=== PATIENT | male | born 1960 | race Caucasian/White ===

== ENCOUNTER 2019-03-07 11:03 | Day surgery (SDC) | payer BC ==
[2019-03-06 09:14] VITALS: BMI 29.8
[~2019-03-07 11:03] MED LIST: LACTATED RINGERS 1,000 ML IV SCH
[2019-03-07 12:24] VITALS: TEMP 97.3
[2019-03-07] MEDS ORDERED: LIDOCAINE 1% (10MG/ML) FOR IV START INTRADERMA ONE (12:24)
[2019-03-07] MEDS ORDERED: PROPOFOL 10 MG/ML 20 ML VIAL IV ONE (12:55)
--- NOTE | 2019-03-07 13:09 | P.PCN ---
Date of Procedure: 03/07/19 Procedure(s) Performed: BRIEF HISTORY: Patient is a 58-year-old pleasant male scheduled for an elective colonoscopy as a part of screening for colorectal neoplasia. PROCEDURE PERFORMED: Colonoscopy. PREOPERATIVE DIAGNOSIS: Screening for colon cancer. IV sedation per Anesthesia. PROCEDURE: After informed consent was obtained, the patient, was brought into the endoscopy unit. IV sedation was administered by Anesthesia under continuous monitoring. Digital rectal examination was normal. Initially the Olympus CF-160 flexible video colonoscope was then inserted in the rectum, gradually advanced into the cecum without any difficulty. Careful examination was performed as the scope was gradually being withdrawn. Ileocecal valve and the appendiceal orifice were visualized and appeared normal. Prep was excellent. Mucosa of the cecum, ascending colon, transverse colon, descending colon, sigmoid colon, and rectum appeared normal. Retroflexion was performed in the rectum and no lesions were seen. The patient tolerated the procedure well. IMPRESSION: Normal-appearing colon from rectum to cecum with no evidence of colorectal neoplasia . RECOMMENDATIONS: Findings of this examination were discussed with the patient as well as his family. He was advised to have a repeat screening colonoscopy in 10 years..
[2019-03-07 13:55] VITALS: BP 121/76; PULSE 78; RESP 16
== END 2019-03-07 13:47 | disposition home or self-care (01) ==
LOC: ORWHC2ENDO 11:03
PROVIDERS: ATTEND Internal Medicine Gastroenterology
DX: Z12.11 Encounter for screening for malignant neoplasm of colon (principal); I10 Essential (primary) hypertension; Z87.891 Personal history of nicotine dependence; Z79.1 Long term (current) use of non-steroidal anti-inflammatories (NSAID)
CPT/HCPCS: J2704; G0121; 45378

== ENCOUNTER 2020-08-09 09:00 | Emergency (ER) | payer BC ==
--- NOTE | 2020-08-09 09:27 | ED ---
General Adult HPI - General Chief complaint: Arrhythmia/Palpitations Stated complaint: irregular heart rate Time Seen by Provider: 08/09/20 09:12 Source: patient, RN notes reviewed, old records reviewed Mode of arrival: ambulatory Limitations: no limitations - History of Present Illness Initial comments: 60-year-old male presenting with palpitations or fluttering sensation in his chest. No associated pain. No dyspnea. Patient is otherwise healthy, no previous history of arrhythmia or CAD currently not on any prescribed medications. Symptoms resolved just prior to arrival. It had lasted greater than an hour. He's had several episodes of this in the past which have resolved spontaneously. No associated syncopal episodes or lightheadedness. No vomiting. No abdominal pain. No fever. - Related Data Home Medications Medication Instructions Recorded Confirmed Glucosam/Ruben-Msm1/C/Jed/Bosw 2 tab PO DAILY 08/09/20 08/09/20 [Sgxpyqyefiw-Kzhvzxbcmsp-CPT Tb] Naproxen Sodium [Aleve] 220 mg PO DAILY PRN 08/09/20 08/09/20 Allergies Allergy/AdvReac Type Severity Reaction Status Date / Time No Known Allergies Allergy Verified 08/09/20 09:46 Review of Systems ROS Statement: Those systems with pertinent positive or pertinent negative responses have been documented in the HPI. ROS Other: All systems not noted in ROS Statement are negative. Past Medical History Past Medical History: Cancer, Hypertension, Osteoarthritis (OA) Additional Past Medical History / Comment(s): occ high bp-no rx, hx skin cancer History of Any Multi-Drug Resistant Organisms: None Reported Past Surgical History: Hernia Repair Additional Past Surgical History / Comment(s): skin cancer removed from face Past Anesthesia/Blood Transfusion Reactions: No Reported Reaction Past Psychological History: No Psychological Hx Reported Smoking Status: Never smoker Past Alcohol Use History: Occasional Past Drug Use History: None Reported - Past Family History Father Family Medical History: Cancer General Exam Limitations: no limitations General appearance: alert, in no apparent distress Head exam: Present: atraumatic, normocephalic Eye exam: Present: normal appearance, PERRL ENT exam: Present: normal exam Neck exam: Present: normal inspection. Absent: tenderness, meningismus Respiratory exam: Present: normal lung sounds bilaterally. Absent: respiratory distress, wheezes Cardiovascular Exam: Present: regular rate, normal rhythm GI/Abdominal exam: Present: soft. Absent: distended, tenderness Extremities exam: Present: normal inspection, normal capillary refill. Absent: pedal edema Neurological exam: Present: alert, oriented X3, CN II-XII intact. Absent: motor sensory deficit Psychiatric exam: Present: normal affect, normal mood Skin exam: Present: warm, dry, intact. Absent: cyanosis, diaphoretic Course Vital Signs 08/09/20 08/09/20 09:02 09:37 Temperature 98.2 F Pulse Rate 103 H 90 Respiratory 18 16 Rate Blood Pressure 160/120 154/98 O2 Sat by Pulse 99 97 Oximetry EKG Findings - EKG Comments: EKG Findings:: EKG: Normal sinus rhythm, left axis, possible left atrial enlargement, rate of 94, [place] interval 162, QRS duration 94, QTC 440, no ST segment elevation. Medical Decision Making - Medical Decision Making 40-year-old male with palpitations. Found to be in sinus rhythm. History is concerning for some intermittent arrhythmia but this is not captured. I do recommend the patient follows with his primary care physician for Holter monitor. Additionally laboratory testing was performed which did show an elevated blood glucose with no history of diabetes. Patient will follow with his primary care physician regarding this as well. All other labs including electrolytes and troponin are negative, chest x-ray is clear, EKG is sinus rhythm. - Lab Data Result diagrams: 08/09/20 09:27 08/09/20 09:27 Lab Results 08/09/20 08/09/20 08/09/20 Range/Units 09:27 09:27 09:27 WBC 4.2 (3.8-10.6) k/uL RBC 5.62 (4.30-5.90) m/uL Hgb 17.4 (13.0-17.5) gm/dL Hct 51.4 (39.0-53.0) % MCV 91.4 (80.0-100.0) fL MCH 31.0 (25.0-35.0) pg MCHC 33.9 (31.0-37.0) g/dL RDW 12.9 (11.5-15.5) % Plt Count 173 (150-450) k/uL MPV 8.2 Neutrophils % 65 % Lymphocytes % 21 % Monocytes % 9 % Eosinophils % 2 % Basophils % 1 % Neutrophils # 2.7 (1.3-7.7) k/uL Lymphocytes # 0.9 L (1.0-4.8) k/uL Monocytes # 0.4 (0-1.0) k/uL Eosinophils # 0.1 (0-0.7) k/uL Basophils # 0.0 (0-0.2) k/uL PT 10.7 (9.0-12.0) sec INR 1.0 (<1.2) APTT 25.8 (22.0-30.0) sec Sodium 138 (137-145) mmol/L Potassium 3.9 (3.5-5.1) mmol/L Chloride 105 (98-107) mmol/L Carbon Dioxide 25 (22-30) mmol/L Anion Gap 8 mmol/L BUN 11 (9-20) mg/dL Creatinine 0.97 (0.66-1.25) mg/dL Est GFR (CKD-EPI)AfAm >90 (>60 ml/min/1.73 sqM) Est GFR (CKD-EPI)NonAf 85 (>60 ml/min/1.73 sqM) Glucose 208 H (74-99) mg/dL Calcium 9.3 (8.4-10.2) mg/dL Magnesium 1.9 (1.6-2.3) mg/dL Total Bilirubin 0.8 (0.2-1.3) mg/dL AST 25 (17-59) U/L ALT 17 (4-49) U/L Alkaline Phosphatase 90 (38-126) U/L Troponin I (0.000-0.034) ng/mL Total Protein 6.8 (6.3-8.2) g/dL Albumin 4.3 (3.5-5.0) g/dL 08/09/20 Range/Units 09:27 WBC (3.8-10.6) k/uL RBC (4.30-5.90) m/uL Hgb (13.0-17.5) gm/dL Hct (39.0-53.0) % MCV (80.0-100.0) fL MCH (25.0-35.0) pg MCHC (31.0-37.0) g/dL RDW (11.5-15.5) % Plt Count (150-450) k/uL MPV Neutrophils % % Lymphocytes % % Monocytes % % Eosinophils % % Basophils % % Neutrophils # (1.3-7.7) k/uL Lymphocytes # (1.0-4.8) k/uL Monocytes # (0-1.0) k/uL Eosinophils # (0-0.7) k/uL Basophils # (0-0.2) k/uL PT (9.0-12.0) sec INR (<1.2) APTT (22.0-30.0) sec Sodium (137-145) mmol/L Potassium (3.5-5.1) mmol/L Chloride (98-107) mmol/L Carbon Dioxide (22-30) mmol/L Anion Gap mmol/L BUN (9-20) mg/dL Creatinine (0.66-1.25) mg/dL Est GFR (CKD-EPI)AfAm (>60 ml/min/1.73 sqM) Est GFR (CKD-EPI)NonAf (>60 ml/min/1.73 sqM) Glucose (74-99) mg/dL Calcium (8.4-10.2) mg/dL Magnesium (1.6-2.3) mg/dL Total Bilirubin (0.2-1.3) mg/dL AST (17-59) U/L ALT (4-49) U/L Alkaline Phosphatase (38-126) U/L Troponin I <0.012 (0.000-0.034) ng/mL Total Protein (6.3-8.2) g/dL Albumin (3.5-5.0) g/dL Disposition Clinical Impression: Palpitations, Blood glucose elevated Disposition: HOME SELF-CARE Condition: Good Instructions (If sedation given, give patient instructions): Heart Palpitations (ED) Additional Instructions: Your blood sugar was elevated over 200, he should follow-up with your primary care physician regarding the possibility of diabetes please return with worsening or changing symptoms. Is patient prescribed a controlled substance at d/c from ED?: No Referrals: Calixto Wilson MD [Primary Care Provider] - 1-2 days Time of Disposition: 10:27
[2020-08-09 09:35] LABS: Basophils % (A) 1 %; Eosinophils # (A) 0.1 k/uL (0-0.7); Eosinophils % (A) 2 %; HCT 51.4 % (39.0-53.0); HGB 17.4 gm/dL (13.0-17.5); Lymphocytes # (A) 0.9 k/uL (1.0-4.8); Lymphocytes % (A) 21 %; MCHC 33.9 g/dL (31.0-37.0); MCV 91.4 fL (80.0-100.0); Mean Platelet Volume 8.2; Monocytes # (A) 0.4 k/uL (0-1.0); Monocytes % (A) 9 %; Neutrophils # (A) 2.7 k/uL (1.3-7.7); Neutrophils % (A) 65 %; Platelet Count 173 k/uL (150-450); RBC 5.62 m/uL (4.30-5.90); RDW 12.9 % (11.5-15.5); WBC 4.2 k/uL (3.8-10.6)
[2020-08-09 09:38] VITALS: RESP 16
[2020-08-09 09:44] LABS: ALT 17 U/L (4-49); AST 25 U/L (17-59); African American GFR (CKD) >90 (>60 ml/min/1.73 sqM); Albumin 4.3 g/dL (3.5-5.0); Alkaline Phosphatase 90 U/L (38-126); Anion Gap 8 mmol/L; Blood Urea Nitrogen 11 mg/dL (9-20); Calcium 9.3 mg/dL (8.4-10.2); Carbon Dioxide 25 mmol/L (22-30); Chloride 105 mmol/L (98-107); Glucose 208 mg/dL (74-99); Magnesium 1.9 mg/dL (1.6-2.3); Non-African American GFR(CKD) 85 (>60 ml/min/1.73 sqM); Potassium 3.9 mmol/L (3.5-5.1); Sodium 138 mmol/L (137-145); Total Bilirubin 0.8 mg/dL (0.2-1.3); Total Protein 6.8 g/dL (6.3-8.2)
--- NOTE | 2020-08-09 09:48 | XR ---
EXAMINATION TYPE: XR chest 2V DATE OF EXAM: 08/09/2020 COMPARISON: NONE HISTORY: Palpitations. TECHNIQUE: Frontal and lateral views of the chest are obtained. FINDINGS: Overlying EKG leads. There is no suspicious focal air space opacity, pleural effusion, or pneumothorax seen. The cardiac silhouette size is within normal limits. The osseous structures are intact. IMPRESSION: No acute cardiopulmonary process.
[2020-08-09 10:02] LABS: Partial Thromboplastin Time 25.8 sec (22.0-30.0); Prothrombin Time 10.7 sec (9.0-12.0)
[2020-08-09 10:38] VITALS: BP 148/79; PULSE 78; TEMP 97.9
== END 2020-08-09 10:35 | disposition home or self-care (01) ==
LOC: EC 09:00
DX: R00.2 Palpitations (principal); R73.9 Hyperglycemia, unspecified; I10 Essential (primary) hypertension; M19.90 Unspecified osteoarthritis, unspecified site
CPT/HCPCS: 36415; 71046; 80053; 83735; 84484; 85025; 85610; 85730; 93005; 99285

== ENCOUNTER 2023-04-06 01:08 | Observation (INO) | payer BC ==
--- NOTE | 2023-04-06 01:49 | ED ---
General Adult HPI - General Chief complaint: Arrhythmia/Palpitations Stated complaint: illregular heart beat Time Seen by Provider: 04/06/23 01:19 Source: patient, RN notes reviewed, old records reviewed Mode of arrival: ambulatory Limitations: no limitations - History of Present Illness Initial comments: Patient is a 62-year-old male who presents emergency department complaining of palpitations. States he has had these intermittently for the last few years however they have never been able to catch what is causing it. States that he began experiencing palpitations at approximately midnight tonight and it has been ongoing since then. Typically does not last this long. There is suspicion he may have a history of paroxysmal A-fib. Is concerned that is what is going on. Denies any margaret chest pain, shortness of breath, abdominal pain, nausea, vomiting. No recent long distance travel. Presents for further evaluation. - Related Data Home Medications Medication Instructions Recorded Confirmed Glucosam/Ruben-Msm1/C/Jed/Bosw 2 tab PO DAILY 08/09/20 08/09/20 [Qzsanryxjnd-Rfwsdinrzvk-SWN Tb] Naproxen Sodium [Aleve] 220 mg PO DAILY PRN 08/09/20 08/09/20 Allergies Allergy/AdvReac Type Severity Reaction Status Date / Time No Known Allergies Allergy Verified 04/06/23 01:11 Review of Systems ROS Statement: Those systems with pertinent positive or pertinent negative responses have been documented in the HPI. Review of Systems: CONST: Denies fever EYES: Denies blurry vision ENT: Denies nasal congestion C/V: Endorses heart palpitations RESP: Denies shortness of breath GI: Denies abdominal pain : Denies dysuria SKIN: Denies rash. MSK: Denies joint pain. NEURO: Denies headache ROS Other: All systems not noted in ROS Statement are negative. Past Medical History Past Medical History: Cancer, Hypertension, Osteoarthritis (OA), Rheumatoid Arthritis (RA) Additional Past Medical History / Comment(s): occ high bp-no rx, hx skin cancer History of Any Multi-Drug Resistant Organisms: None Reported Past Surgical History: Hernia Repair Additional Past Surgical History / Comment(s): skin cancer removed from face Past Anesthesia/Blood Transfusion Reactions: No Reported Reaction Past Psychological History: No Psychological Hx Reported Smoking Status: Never smoker Past Alcohol Use History: Occasional Past Drug Use History: None Reported - Past Family History Father Family Medical History: Cancer General Exam - General Exam Comments Initial Comments: General: Appears in no acute distress. HEAD: Normal with no signs of head trauma. EYES: PERRLA, EOMI, conjunctiva normal, no discharge. ENT: Hearing grossly intact, normal oropharynx. RESPIRATORY: Clear breath sounds bilaterally. No wheezes, rales, or rhonchi. C/V: Irregular rate and rhythm. S1 and S2 auscultated, no edema, peripheral pulses 2+ and intact throughout ABD: Abd is soft, nontender, nondistended EXT: Normal range of motion, no obvious deformity SKIN: No rashes or lesions observed on exposed skin. NEURO: Alert and oriented x 4. Limitations: no limitations Course Vital Signs 04/06/23 04/06/23 04/06/23 01:09 01:32 02:57 Temperature 98.2 F 98.2 F Pulse Rate 132 H 126 H 85 Respiratory 20 18 18 Rate Blood Pressure 161/96 171/113 120/105 O2 Sat by Pulse 98 100 98 Oximetry Medical Decision Making - Medical Decision Making Was pt. sent in by a medical professional or institution (, PA, [employer] WORKER HELPER, urgent care, hospital, or long term...) When possible be specific @ -No Did you speak to anyone other than the patient for history (EMS, parent, family, police, friend...)? What history was obtained from this source @ -No Did you review nursing and triage notes (agree or disagree)? Why? @ -I reviewed and agree with nursing and triage notes Were old charts reviewed (outside hosp., previous admission, EMS record, old EKG, old radiological studies, urgent care reports/EKG's, long term records)? Report findings @ -No old charts were reviewed Differential Diagnosis (chest pain, altered mental status, abdominal pain women, abdominal pain men, vaginal bleeding, weakness, fever, dyspnea, syncope, headache, dizziness, GI bleed, back pain, seizure, CVA, palpatations, mental health, musculoskeletal)? @ -Differential Palpitations Ventricular arrhythmias, atrial arrhythmias, myocardial infarction, anemia, thyrotoxicosis, electrolyte imbalance, hypokalemia, pulmonary embolism, pulmonary disease, drugs, alcohol, anxiety, stress.... This is not meant to be an all-inclusive list. EKG interpreted by me (3pts min.). @ -As above X-rays interpreted by me (1pt min.). @ -Chest x-ray reveals no obvious acute cardiopulmonary process. CT interpreted by me (1pt min.). @ - CT PE protocol revealed no evidence of pulmonary embolism. 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 U/S interpreted by me (1pt. min.). @ -None done What testing was considered but not performed or refused? (CT, X-rays, U/S, labs)? Why? @ -None What meds were considered but not given or refused? Why? @ -None Did you discuss the management of the patient with other professionals (professionals i.e. Dr., PA, [employer] WORKER HELPER, lab, RT, psych nurse, family welfare social work professor, supervisor paint, teacher, data officer, block and case maker)? Give summary @ -[facility]. Was smoking cessation discussed for >3mins.? @ -No Was critical care preformed (if so, how long)? @ -Yes, 36 minutes. Were there social determinants of health that impacted care today? How? (Homelessness, low income, unemployed, alcoholism, drug addiction, transportation, low edu. Level, literacy, decrease access to med. care, group home, rehab)? @ -No Was there de-escalation of care discussed even if they declined (Discuss DNR or withdrawal of care, Hospice)? DNR status @ -No What co-morbidities impacted this encounter? (DM, HTN, Smoking, COPD, CAD, Ca ncer, CVA, ARF, Chemo, Hep., AIDS, mental health diagnosis, sleep apnea, morbid obesity)? @ -None Was patient admitted / discharged? Hospital course, mention meds given and route, prescriptions, significant lab abnormalities, going to OR and other pertinent info. @ -Based on patient's presentation and physical exam, EKG obtained upon arrival shows patient is in atrial fibrillation with RVR. Patient be connected to continuous cardiac monitoring. We will obtain cardiopulmonary workup. Patient will be started on a Cardizem drip with a bolus of 10 mg and started at 5 mg an hour with goal heart rates at least less than 115 bpm. Patient was in agreement this plan. He will be empirically given a liter fluid bolus as well as aspirin. Vital signs other than the A-fib with RVR are within acceptable limits. Patient converted to normal sinus rhythm following Cardizem IV bolus as well as a short period of time on Cardizem drip. Patient's laboratory studies remarkable for slightly elevated D-dimer of 0.74. Troponin is undetectable. Remainder the labs within acceptable limits. Chest x-ray returned showing no evidence of acute cardiopulmonary process. I did recommend obtaining a chest CT to rule out PE in the setting of new onset A- fib. He was in agreement this plan. Remains hemodynamically stable at this time. Currently in normal sinus rhythm. Cardizem is off. CT imaging revealed no evidence of PE. Does have some fusiform ectasia of the ascending thoracic aorta without evidence of aneurysm. I did the patient on these results. He remains in normal sinus rhythm. He will be admitted to observation at this time. We will hold starting anticoagulation as well as further Cardizem drip at this time. He was in agreement this plan. Cardiology was consulted. Echo was ordered. Undiagnosed new problem with uncertain prognosis? @ -No Drug Therapy requiring intensive monitoring for toxicity (Heparin, Nitro, Insulin, Cardizem)? @ -Initially Cardizem however it is now off. Were any procedures done? @ -No Diagnosis/symptom? @ -New onset atrial fibrillation with RVR, resolved Acute, or Chronic, or Acute on Chronic? @ -Acute Uncomplicated (without systemic symptoms) or Complicated (systemic symptoms)? @ -Complicated Side effects of treatment? @ -No Exacerbation, Progression, or Severe Exacerbation? @ -No Poses a threat to life or bodily function? How? (Chest pain, USA, ID, pneumonia, PE, COPD, DKA, ARF, appy, cholecystitis, CVA, Diverticulitis, Homicidal, Suicidal, threat to staff... and all critical care pts) @ -Yes - Lab Data Result diagrams: 04/06/23 02:02 04/06/23 02:02 Lab Results 04/06/23 04/06/23 04/06/23 Range/Units 02:02 02:02 02:02 WBC 6.0 (3.8-10.6) k/uL RBC 5.35 (4.30-5.90) m/uL Hgb 16.4 (13.0-17.5) gm/dL Hct 50.4 (39.0-53.0) % MCV 94.1 (80.0-100.0) fL MCH 30.7 (25.0-35.0) pg MCHC 32.7 (31.0-37.0) g/dL RDW 14.7 (11.5-15.5) % Plt Count 212 (150-450) k/uL MPV 8.2 Neutrophils % 55 % Lymphocytes % 29 % Monocytes % 9 % Eosinophils % 2 % Basophils % 0 % Neutrophils # 3.3 (1.3-7.7) k/uL Lymphocytes # 1.7 (1.0-4.8) k/uL Monocytes # 0.6 (0-1.0) k/uL Eosinophils # 0.1 (0-0.7) k/uL Basophils # 0.0 (0-0.2) k/uL PT 10.4 (10.0-12.5) sec INR 0.9 (<1.2) APTT 26.8 (22.0-30.0) sec D-Dimer 0.74 H (<0.60) mg/L FEU Sodium (137-145) mmol/L Potassium (3.5-5.1) mmol/L Chloride (98-107) mmol/L Carbon Dioxide (22-30) mmol/L Anion Gap mmol/L BUN (9-20) mg/dL Creatinine (0.66-1.25) mg/dL Est GFR (CKD-EPI)AfAm (>60 ml/min/1.73 sqM) Est GFR (CKD-EPI)NonAf (>60 ml/min/1.73 sqM) Glucose (74-99) mg/dL Calcium (8.4-10.2) mg/dL Magnesium (1.6-2.3) mg/dL Total Bilirubin (0.2-1.3) mg/dL AST (17-59) U/L ALT (4-49) U/L Alkaline Phosphatase (38-126) U/L Troponin I (0.000-0.034) ng/mL NT-Pro-B Natriuret Pep pg/mL Total Protein (6.3-8.2) g/dL Albumin (3.5-5.0) g/dL TSH (0.465-4.680) mIU/L Urine Color Colorless Urine Appearance Clear (Clear) Urine pH 5.5 (5.0-8.0) Ur Specific [place] 1.002 (1.001-1.035) Urine Protein Negative (Negative) Urine Glucose (UA) Negative (Negative) Urine Ketones Negative (Negative) Urine Blood Negative (Negative) Urine Nitrite Negative (Negative) Urine Bilirubin Negative (Negative) Urine Urobilinogen <2.0 (<2.0) mg/dL Ur Leukocyte Esterase Negative (Negative) Urine Opiates Screen Not Detected (NotDetected) Ur Oxycodone Screen Not Detected (NotDetected) Urine Methadone Screen Not Detected (NotDetected) Ur Barbiturates Screen Not Detected (NotDetected) U Tricyclic Antidepress Not Detected (NotDetected) Ur Phencyclidine Scrn Not Detected (NotDetected) Ur Amphetamines Screen Not Detected (NotDetected) U Methamphetamines Scrn Not Detected (NotDetected) U Benzodiazepines Scrn Not Detected (NotDetected) Urine Cocaine Screen Not Detected (NotDetected) U Marijuana (THC) Screen Not Detected (NotDetected) 04/06/23 04/06/23 04/06/23 Range/Units 02:02 02:02 02:02 WBC (3.8-10.6) k/uL RBC (4.30-5.90) m/uL Hgb (13.0-17.5) gm/dL Hct (39.0-53.0) % MCV (80.0-100.0) fL MCH (25.0-35.0) pg MCHC (31.0-37.0) g/dL RDW (11.5-15.5) % Plt Count (150-450) k/uL MPV Neutrophils % % Lymphocytes % % Monocytes % % Eosinophils % % Basophils % % Neutrophils # (1.3-7.7) k/uL Lymphocytes # (1.0-4.8) k/uL Monocytes # (0-1.0) k/uL Eosinophils # (0-0.7) k/uL Basophils # (0-0.2) k/uL PT (10.0-12.5) sec INR (<1.2) APTT (22.0-30.0) sec D-Dimer (<0.60) mg/L FEU Sodium 139 (137-145) mmol/L Potassium 3.7 (3.5-5.1) mmol/L Chloride 107 (98-107) mmol/L Carbon Dioxide 25 (22-30) mmol/L Anion Gap 7 mmol/L BUN 16 (9-20) mg/dL Creatinine 0.70 (0.66-1.25) mg/dL Est GFR (CKD-EPI)AfAm >90 (>60 ml/min/1.73 sqM) Est GFR (CKD-EPI)NonAf >90 (>60 ml/min/1.73 sqM) Glucose 120 H (74-99) mg/dL Calcium 9.5 (8.4-10.2) mg/dL Magnesium 2.0 (1.6-2.3) mg/dL Total Bilirubin 0.7 (0.2-1.3) mg/dL AST 25 (17-59) U/L ALT 16 (4-49) U/L Alkaline Phosphatase 119 (38-126) U/L Troponin I <0.012 (0.000-0.034) ng/mL NT-Pro-B Natriuret Pep 40 pg/mL Total Protein 7.0 (6.3-8.2) g/dL Albumin 4.4 (3.5-5.0) g/dL TSH 3.570 (0.465-4.680) mIU/L Urine Color Urine Appearance (Clear) Urine pH (5.0-8.0) Ur Specific [place] (1.001-1.035) Urine Protein (Negative) Urine Glucose (UA) (Negative) Urine Ketones (Negative) Urine Blood (Negative) Urine Nitrite (Negative) Urine Bilirubin (Negative) Urine Urobilinogen (<2.0) mg/dL Ur Leukocyte Esterase (Negative) Urine Opiates Screen (NotDetected) Ur Oxycodone Screen (NotDetected) Urine Methadone Screen (NotDetected) Ur Barbiturates Screen (NotDetected) U Tricyclic Antidepress (NotDetected) Ur Phencyclidine Scrn (NotDetected) Ur Amphetamines Screen (NotDetected) U Methamphetamines Scrn (NotDetected) U Benzodiazepines Scrn (NotDetected) Urine Cocaine Screen (NotDetected) U Marijuana (THC) Screen (NotDetected) - EKG Data -: EKG Interpreted by Me EKG Comments: 12-lead Electrocardiogram Interpretation Note EKG was reviewed and interpreted by myself. 12-lead ECG performed at 0118 is interpreted by me as revealing atrial fibrillation with RVR at a rate of 148 beats per minute. [place] is normal. QRS duration is 89 ms, QTc is 386 ms.. There were no ST or T wave abnormalities to suggest myocardial ischemia or injury. R wave progression across the precordium was satisfactory. By my i nterpretation this EKG is non-diagnostic for acute ischemia. 12-lead Electrocardiogram Interpretation Note EKG was reviewed and interpreted by myself. 12-lead ECG performed at 0253 is interpreted by me as revealing normal sinus rhythm at a rate of 69 beats per minute. Bath is normal. PA interval is 173 ms, QRS duration is 98 ms, QTc is 400 ms.. There were no ST or T wave abnormalities to suggest myocardial ischemia or injury. R wave progression across the precordium was delayed. By my interpretation this EKG is non-diagnostic for acute ischemia. Critical Care Time Critical Care Time: Yes Total Critical Care Time: 36 Disposition Clinical Impression: Atrial fibrillation Disposition: ADMITTED IP TO THIS HOSP Condition: Stable Time of Disposition: 04:26
[2023-04-06] MEDS: DILTIAZEM 125 MG in SODIUM CHLORIDE 0.9% 100 ML IV SCH (02:11)
[2023-04-06] MEDS: DILTIAZEM DRIP BOLUS FROM BAG 1 MG SOLN IV ONE (02:11)
[2023-04-06] MEDS: SODIUM CHLORIDE 0.9% 1,000 ML IV STA (02:12)
[2023-04-06] MEDS: ASPIRIN 81 MG PO STA (02:12)
[2023-04-06 02:14] LABS: Basophils % (A) 0 %; Eosinophils # (A) 0.1 k/uL (0-0.7); Eosinophils % (A) 2 %; HCT 50.4 % (39.0-53.0); HGB 16.4 gm/dL (13.0-17.5); Lymphocytes # (A) 1.7 k/uL (1.0-4.8); Lymphocytes % (A) 29 %; MCH 30.7 pg (25.0-35.0); MCHC 32.7 g/dL (31.0-37.0); MCV 94.1 fL (80.0-100.0); Mean Platelet Volume 8.2; Monocytes # (A) 0.6 k/uL (0-1.0); Monocytes % (A) 9 %; Neutrophils # (A) 3.3 k/uL (1.3-7.7); Neutrophils % (A) 55 %; Platelet Count 212 k/uL (150-450); RBC 5.35 m/uL (4.30-5.90); RDW 14.7 % (11.5-15.5)
[2023-04-06 02:17] LABS: Appearance,Urine Clear (Clear); Bilirubin,Urine Negative (Negative); Blood,Urine Negative (Negative); Color,Urine Colorless; Glucose,Urine (UA) Negative (Negative); Ketones,Urine Negative (Negative); Leukocyte Esterase,Urine Negative (Negative); Nitrite,Urine Negative (Negative); PH, Urine 5.5 (5.0-8.0); Protein,Urine Negative (Negative); Specific Gravity,Urine 1.002 (1.001-1.035); Urobilinogen,Urine <2.0 mg/dL (<2.0)
[2023-04-06 02:29] LABS: Amphetamine Screen,Urine Not Detected (NotDetected); Barbiturate Screen,Urine Not Detected (NotDetected); Benzodiazepines Screen,Urine Not Detected (NotDetected); Cocaine Screen,Urine Not Detected (NotDetected); INR 0.9 (<1.2); Methadone Screen, Urine Not Detected (NotDetected); Opiate Screen,Urine Not Detected (NotDetected); Oxycodone Screen, Urine Not Detected (NotDetected); Phencyclidine Screen,Urine Not Detected (NotDetected); Prothrombin Time 10.4 sec (10.0-12.5); Tricyclic Antidepressant,Urine Not Detected (NotDetected); Urn Cannabinoid Scrn Not Detected (NotDetected)
[2023-04-06 02:30] LABS: Partial Thromboplastin Time 26.8 sec (22.0-30.0)
[2023-04-06 02:40] LABS: ALT 16 U/L (4-49); AST 25 U/L (17-59); African American GFR (CKD) >90 (>60 ml/min/1.73 sqM); Albumin 4.4 g/dL (3.5-5.0); Alkaline Phosphatase 119 U/L (38-126); Anion Gap 7 mmol/L; Blood Urea Nitrogen 16 mg/dL (9-20); Calcium 9.5 mg/dL (8.4-10.2); Carbon Dioxide 25 mmol/L (22-30); Chloride 107 mmol/L (98-107); Glucose 120 mg/dL (74-99); Non-African American GFR(CKD) >90 (>60 ml/min/1.73 sqM); Potassium 3.7 mmol/L (3.5-5.1); Sodium 139 mmol/L (137-145); Total Bilirubin 0.7 mg/dL (0.2-1.3)
--- NOTE | 2023-04-06 03:55 | XR ---
EXAM: XR Chest, 2 Views CLINICAL HISTORY: ITS.REASON XR Reason: dysrhythmia TECHNIQUE: Frontal and lateral views of the chest. COMPARISON: No relevant prior studies available. FINDINGS: Lungs: No consolidation or mass. Pleural space: No effusion. Heart: No cardiomegaly. Bones/joints: No acute findings. IMPRESSION: No acute cardiopulmonary process.
--- NOTE | 2023-04-06 04:30 | CT ---
EXAM: CT Angiography Chest With Intravenous Contrast CLINICAL HISTORY: ITS.REASON CT Reason: elevated dimer, afib TECHNIQUE: Axial computed tomographic angiography images of the chest with intravenous contrast. CTDI is 21.9 mGy and DLP is 442.4 mGy-cm. This CT exam was performed using one or more of the following dose reduction techniques: automated exposure control, adjustment of the mA and/or kV according to patient size, and/or use of iterative reconstruction technique. MIP reconstructed images were created and reviewed. COMPARISON: No relevant prior studies available. FINDINGS: Pulmonary arteries: Unremarkable. No pulmonary embolism. Aorta: 43 mm fusiform ascending thoracic aortic ectasia. No thoracic aortic aneurysm. Lungs: Unremarkable. No mass. No consolidation. Pleural space: Unremarkable. No significant effusion. No pneumothorax. Heart: Unremarkable. No cardiomegaly. No significant pericardial effusion. No evidence of RV dysfunction. Bones/joints: No acute fracture. No dislocation. Soft tissues: Unremarkable. Lymph nodes: Unremarkable. No enlarged lymph nodes. IMPRESSION: 1. Fusiform ascending thoracic aortic ectasia. 2. No CTA evidence for pulmonary embolus.
--- NOTE | 2023-04-06 04:33 | P.HPIM ---
History of Present Illness H&P Date: 04/06/23 Patient is a 62-year-old male with no known PMH who presents to the emergency room with complaints of palpitations. Patient reports he has been experiencing intermittent palpitations for the past several years. Reports that earlier today, the episode started around midnight and lasted until 3 AM. Denies experiencing associated shortness of breath, chest discomfort, nausea, vomiting, diaphoresis. Does report mild lightheadedness with the episode today but no prior history of such. Denies fever, chills, cough, abdominal pain, diarrhea. Reports that the symptoms resolved at the time of interview and he felt at his baseline. EKG in the emergency room revealed A-fib with RVR at 148 bpm as reviewed by me. Chest CTA was reviewed with the emergency room physician revealed no significant acute abnormalities. Laboratory evaluation revealed a troponin of less than 0.012 with proBNP 40, with an unremarkable UA and urine toxicology with D-dimer 0.74. ED documentation reviewed and case discussed with ED provider. Review of systems: Pertinent positives and negatives as discussed in HPI, a complete review of systems was performed and all other systems are negative. Physical examination: Vital signs reviewed General: non toxic, no distress, appears at stated age, overweight Derm: no unusual rashes/lesions, warm Head: atraumatic, normocephalic, symmetric Eyes: EOMI, no lid lag, anicteric sclera, pupils equal round reactive to light ENT: Nose and ears atraumatic Neck: No cervical lymphadenopathy, trachea midline, supple Mouth: no lip lesion, mucus membranes moist Cardiovascular: S1S2 reg, no murmur, positive dorsalis pedis pulse bilateral, no edema Lungs: CTA bilateral, no rhonchi, no rales, no accessory muscle use Abdominal: soft, nontender to palpation, no guarding Ext: muscle strength 5 out of 5 in all 4 extremities grossly, no gross muscle atrophy, no contractures, Neuro: CN II-XI grossly intact, no gross focal neuro deficits Psych: Alert, oriented, appropriate affect Assessment: Paroxysmal A-fib, newly diagnosed Imaging: EKG in the emergency room revealed A-fib with RVR at 148 bpm as reviewed by me. Chest CTA was reviewed with the emergency room physician revealed no significant acute abnormalities. Data Review: Laboratory evaluation revealed a troponin of less than 0.012 with proBNP 40, with an unremarkable UA and urine toxicology with D-dimer 0.74. Plan: Cardiology consult Cardiac monitoring [id number] score: 0 points Obtain echocardiogram Check TSH levels Initiate Lopressor 25 mg po bid DVT prophylaxis: Heparin subcu The patient is admitted with an anticipated less than 2 midnight stay for evaluation of afib CODE STATUS: Full Code Discussed with: Patient Anticipated discharge place: Home Past Medical History Past Medical History: Cancer, Hypertension, Osteoarthritis (OA), Rheumatoid Arthritis (RA) Additional Past Medical History / Comment(s): occ high bp-no rx, hx skin cancer History of Any Multi-Drug Resistant Organisms: None Reported Past Surgical History: Hernia Repair Additional Past Surgical History / Comment(s): skin cancer removed from face Past Anesthesia/Blood Transfusion Reactions: No Reported Reaction Past Psychological History: No Psychological Hx Reported Smoking Status: Never smoker Past Alcohol Use History: Occasional Past Drug Use History: None Reported - Past Family History Father Family Medical History: Cancer Medications and Allergies Home Medications Medication Instructions Recorded Confirmed Type Glucosam/Ruben-Msm1/C/Jed/Bosw 2 tab PO DAILY 08/09/20 08/09/20 History [Kcqymgnigey-Icezcpzgcii-TMI Tb] Naproxen Sodium [Aleve] 220 mg PO DAILY PRN 08/09/20 08/09/20 History Allergies Allergy/AdvReac Type Severity Reaction Status Date / Time No Known Allergies Allergy Verified 04/06/23 01:11 Physical Exam Vitals: Vital Signs Temp Pulse Resp BP Pulse Ox 04/06/23 02:57 85 18 120/105 98 04/06/23 01:32 98.2 F 126 H 18 171/113 100 04/06/23 01:09 98.2 F 132 H 20 161/96 98 Intake and Output 04/05/23 04/05/23 04/06/23 14:59 22:59 06:59 Other: Weight 97.522 kg Results CBC & Chem 7: 04/06/23 02:02 04/06/23 02:02 Labs: Abnormal Lab Results - Last 24 Hours (Table) 04/06/23 04/06/23 Range/Units 02:02 02:02 D-Dimer 0.74 H (<0.60) mg/L FEU Glucose 120 H (74-99) mg/dL
[2023-04-06] MEDS ORDERED: NALOXONE 0.4 MG/ML 1 ML VIAL IV PRN (04:37)
[2023-04-06] MEDS ORDERED: METOPROLOL TARTRATE 25 MG TAB PO SCH (09:00)
[2023-04-06] MEDS: HEPARIN SODIUM,PORCINE 5,000 UNIT/ML 1 ML VIAL SQ SCH (09:15)
--- NOTE | 2023-04-06 10:38 | P.CRDCN ---
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 We have been asked to evaluate the patient for new onset atrial fibrillation. He has a past medical history of hypertension and rheumatoid arthritis. Patient states that he has had episodes of fluttering feeling of his chest that usually last about 15 minutes and have occurred intermittently over the past 2 years. Patient had an episode that lasted for about 1 and half hours and then by the time he got to the hospital it resolved. This is a second episode yesterday's over the past couple months. Patient was found to be in A-fib with RVR presentation and started on Cardizem 10 mg bolus followed by drip. Patient denies having history of smoking. He states he used to drink a lot until about a year ago when he was diagnosed with rheumatoid ar thritis. Yesterday he did have 1 beer. Discussed with him risk for stroke with atrial fibrillation and that he does not meet the criteria for anticoagulation but will be on aspirin. Patient is also been started on Lopressor. Patient has converted to sinus rhythm and he no longer has fluttering feeling. EKG #1 atrial fibrillation 148 bpm, #2 sinus rhythm 69 bpm Chest x-ray: No acute process CTA of the chest no pulmonary embolism. Fusiform ascending thoracic aortic ectasia. CBC, electrolytes, renal function, liver function test all within normal limits. Troponin negative x 3. TSH 3.570. D-dimer 0.74. Home cardiac medications: Lisinopril 5 mg daily Review Of Systems: At the time of my exam: CONSTITUTIONAL: Denies fever or chills. HEENT: Denies blurred vision, vision changes, or eye pain. Denies hemoptysis CARDIOVASCULAR: Denies chest pain. Denies orthopnea. Denies PND. Denies pal pitations RESPIRATORY: Denies shortness of breath. GASTROINTESTINAL: Denies abdominal pain. Denies nausea or vomiting. HEMATOLOGIC: Denies bleeding disorders. GENITOURINARY: Denies any blood in urine. SKIN: Denies pruitis. Denies rash. Physical examination: Gen: This is a 62-year-old male in no acute distress VS: reviewed blood pressure 152/88, heart rate 60. Pulse ox 100% on room air. HEENT: Head is atraumatic, normocephalic. Pupils equal, round. Sclerae is anicteric. NECK: Supple. No JVD. LUNGS: Clear to auscultation. No wheezes or rhonchi. No intercostal retractions. HEART: Regular rate and rhythm. No murmur. ABDOMEN: Soft No tenderness. EXTREMITIES: No pedal edema. No calf tenderness. NEUROLOGICAL: Patient is awake, alert and oriented x3. Assessment: Paroxysmal atrial fibrillation Hypertension Rheumatoid arthritis History of heavy alcohol use Plan: Continue lisinopril Discontinue metoprolol and if EF normal, patient will be started on Rythmol 150 mg 3 times daily Obtain 2-D echocardiogram and Doppler study to assess cardiac structure and function Monitor patient overnight and plan for discharge home tomorrow. Further recommendations to follow based upon clinical course Thank you kindly for this consultation. Nurse practitioner note has been reviewed, I agree with documented findings and plan of care. Patient was seen and examined. Past Medical History Past Medical History: Cancer, Hypertension, Osteoarthritis (OA), Rheumatoid Arthritis (RA) Additional Past Medical History / Comment(s): occ high bp-no rx, hx skin cancer History of Any Multi-Drug Resistant Organisms: None Reported Past Surgical History: Hernia Repair Additional Past Surgical History / Comment(s): skin cancer removed from face Past Anesthesia/Blood Transfusion Reactions: No Reported Reaction Past Psychological History: No Psychological Hx Reported Smoking Status: Never smoker Past Alcohol Use History: Occasional Past Drug Use History: None Reported - Past Family History Father Family Medical History: Cancer Medications and Allergies Home Medications Medication Instructions Recorded Confirmed Type Folic Acid 1 mg PO DAILY 04/06/23 04/06/23 History lisinopriL [Zestril] 5 mg PO DAILY 04/06/23 04/06/23 History metHOTREXate sodium 25 mg PO Q7D 04/06/23 04/06/23 History Allergies Allergy/AdvReac Type Severity Reaction Status Date / Time No Known Allergies Allergy Verified 04/06/23 06:59 Physical Exam Vitals: Vital Signs Temp Pulse Resp BP Pulse Ox 04/06/23 06:48 98.1 F 56 L 18 125/80 98 04/06/23 02:57 85 18 120/105 98 04/06/23 01:32 98.2 F 126 H 18 171/113 100 04/06/23 01:09 98.2 F 132 H 20 161/96 98 Intake and Output 04/05/23 04/06/23 04/06/23 22:59 06:59 14:59 Other: Weight 97.522 kg Results 04/06/23 02:02 04/06/23 02:02 Cardiac Enzymes 04/06/23 04/06/23 04/06/23 Range/Units 02:02 02:02 04:53 AST 25 (17-59) U/L Troponin I <0.012 <0.012 (0.000-0.034) ng/mL Coagulation 04/06/23 Range/Units 02:02 PT 10.4 (10.0-12.5) sec APTT 26.8 (22.0-30.0) sec CBC 04/06/23 Range/Units 02:02 WBC 6.0 (3.8-10.6) k/uL RBC 5.35 (4.30-5.90) m/uL Hgb 16.4 (13.0-17.5) gm/dL Hct 50.4 (39.0-53.0) % Plt Count 212 (150-450) k/uL Comprehensive Metabolic Panel 04/06/23 Range/Units 02:02 Sodium 139 (137-145) mmol/L Potassium 3.7 (3.5-5.1) mmol/L Chloride 107 (98-107) mmol/L Carbon Dioxide 25 (22-30) mmol/L BUN 16 (9-20) mg/dL Creatinine 0.70 (0.66-1.25) mg/dL Glucose 120 H (74-99) mg/dL Calcium 9.5 (8.4-10.2) mg/dL AST 25 (17-59) U/L ALT 16 (4-49) U/L Alkaline Phosphatase 119 (38-126) U/L Total Protein 7.0 (6.3-8.2) g/dL Albumin 4.4 (3.5-5.0) g/dL Current Medications Generic Name Dose Route Start Last Admin Trade Name Freq PRN Reason Stop Dose Admin Heparin Sodium (Porcine) 5,000 unit 04/06/23 08:00 Heparin Sodium,Porcine 5,000 Unit/Ml 1 Ml Vial SQ Q8HR MARILIA Metoprolol Tartrate 25 mg 04/06/23 09:00 Metoprolol Tartrate 25 Mg Tab PO BID MARILIA Naloxone HCl 0.2 mg 04/06/23 04:37 Naloxone 0.4 Mg/Ml 1 Ml Vial IV Q2M PRN Opioid Reversal Intake and Output 04/05/23 04/06/23 04/06/23 22:59 06:59 14:59 Other: Weight 97.522 kg 04/06/23 02:02 04/06/23 02:02
[2023-04-06 15:35] VITALS: RESP 18
[2023-04-06] MEDS: PROPAFENONE 150 MG TAB PO SCH (16:04)
--- NOTE | 2023-04-07 00:17 | CA ---
Transthoracic Echo Report Name: Bean Ag Age: 62 Gender: M : 1960 Exam Date: 04/06/2023 16:22 Exam Location: [facility] Ht (in): 70 Wt (lb): 215 Ordering Physician: Goran Puentes MD Attending/Referring Phys: Gluing Machine Feeder Sydnie White RDCS Procedure CPT: Indications: afib Cardiac Hx: Technical Quality: Fair Contrast 1: Total Dose (mL): Contrast 2: Total Dose (mL): MEASUREMENTS (Male / Female) Normal Values 2D ECHO LV Diastolic Diameter PLAX 5.7 cm 4.2 - 5.9 / 3.9 - 5.3 cm LV Systolic Diameter PLAX 4.0 cm IVS Diastolic Thickness 0.9 cm 0.6 - 1.0 / 0.6 - 0.9 cm LVPW Diastolic Thickness 1.0 cm 0.6 - 1.0 / 0.6 - 0.9 cm LV Relative Wall Thickness 0.3 Aortic Root Diameter 4.2 cm LA Systolic Diameter LX 4.6 cm 3.0 - 4.0 / 2.7 - 3.8 cm DOPPLER AV Peak Velocity 115.4 cm/s AV Peak Gradient 5.3 mmHg AV Mean Velocity 78.4 cm/s AV Mean Gradient 2.7 mmHg AV Velocity Time Integral 25.7 cm AI Peak Velocity 222.8 cm/s AI Peak Gradient 19.8 mmHg AI Pressure Half Time 321.2 ms LVOT Peak Velocity 117.8 cm/s LVOT Peak Gradient 5.5 mmHg LVOT Velocity Time Integral 25.8 cm Mitral E Point Velocity 56.8 cm/s Mitral A Point Velocity 90.2 cm/s Mitral E to A Ratio 0.6 MV Deceleration Time 355.8 ms MV E' Velocity 14.1 cm/s Mitral E to MV E' Ratio 4.0 PV Peak Velocity 80.9 cm/s PV Peak Gradient 2.6 mmHg FINDINGS Left Ventricle Left ventricular ejection fraction is estimated at 55-60 %. Right Ventricle Right ventricle not well visualized. Right Atrium Right atrium not well visualized. Left Atrium Mildly increased left atrial diameter. Mitral Valve Structurally normal mitral valve. Aortic Valve Trileaflet aortic valve. Tricuspid Valve Trace tricuspid regurgitation. Pulmonic Valve Trace pulmonic regurgitation. Pericardium Normal pericardium. Aorta Aorta measuring approximately 4.1 cm. CONCLUSIONS Left ventricular ejection fraction 55-60% Mildly dilated left atrium No mitral regurgitation Trace tricuspid regurgitation Ascending aorta measuring 4.1 cm Previewed by: Dr. Mansoor Yeh DO (Electronically Signed) Final Date: 07 April 2023 00:16
[2023-04-07] MEDS: ASPIRIN 325 MG TAB PO SCH (08:25)
[2023-04-07 10:35] LABS: Basophils % (A) 1 %; Eosinophils # (A) 0.1 k/uL (0-0.7); Eosinophils % (A) 1 %; HCT 50.3 % (39.0-53.0); HGB 16.1 gm/dL (13.0-17.5); Lymphocytes % (A) 18 %; MCH 30.8 pg (25.0-35.0); MCHC 32.1 g/dL (31.0-37.0); MCV 96.1 fL (80.0-100.0); Mean Platelet Volume 8.1; Monocytes # (A) 0.5 k/uL (0-1.0); Monocytes % (A) 8 %; Neutrophils # (A) 3.7 k/uL (1.3-7.7); Neutrophils % (A) 70 %; Platelet Count 217 k/uL (150-450); RBC 5.24 m/uL (4.30-5.90); RDW 14.8 % (11.5-15.5); WBC 5.4 k/uL (3.8-10.6)
[2023-04-07 10:58] LABS: African American GFR (CKD) >90 (>60 ml/min/1.73 sqM); Anion Gap 3 mmol/L; Blood Urea Nitrogen 11 mg/dL (9-20); Calcium 9.6 mg/dL (8.4-10.2); Carbon Dioxide 28 mmol/L (22-30); Chloride 107 mmol/L (98-107); Glucose 143 mg/dL (74-99); Non-African American GFR(CKD) >90 (>60 ml/min/1.73 sqM); Potassium 4.5 mmol/L (3.5-5.1); Sodium 138 mmol/L (137-145)
[2023-04-07 11:28] VITALS: BP 145/58; PULSE 57; TEMP 97.5
--- NOTE | 2023-04-07 12:56 | P.DS ---
Providers Date of admission: 04/06/23 04:39 Expected date of discharge: 04/07/23 Attending physician: Goran Puentes MD Consults: 04/06/23 04:37 Consult Physician Routine Consulting Provider: [facility] Consult Reason/Comments: afib Do you want consulting provider notified?: Yes Primary care physician: [facility] Course: Discharge Diagnosis: Newly diagnosed paroxysmal atrial fibrillation Hypertension Rheumatoid arthritis Hospital Course: 62-year-old male with no known PMH who presents to the emergency room with complaints of palpitations. EKG in the emergency room revealed A-fib with RVR at 148 bpm as. Chest CTA was reviewed with the emergency room physician revealed no significant acute abnormalities. Laboratory evaluation revealed a troponin of less than 0.012 with proBNP 40, with an unremarkable UA and urine toxicology with D-dimer 0.74. Patient was initially started on oral metoprolol. Cardiology was consulted. Transition to Rythmol. No anticoagulation due to low [id number] score. Patient to follow-up outpatient with cardiology. He is asymptomatic at the time of discharge. Patient seen and examined at bedside. Vital signs reviewed and stable. General: Nontoxic, no distress, appears at stated age Derm: Warm, dry Head: Atraumatic, normocephalic, symmetric Eyes: EOMI, no lid lag, anicteric sclera Mouth: No lip lesion, mucus membranes moist Cardiovascular: S1S2 reg, no murmur Lungs: CTA bilateral, no rhonchi, no rales, no accessory muscle use Abdominal: Soft, nontender to palpation, no guarding, no appreciable organomegaly Ext: No gross muscle atrophy, no edema, no contractures Neuro: CN II-XI grossly intact, no focal neuro deficits Psych: Alert, oriented, appropriate affect A total of 33 minutes of time were spent preparing this complex discharge summary. Patient was discharged on 04/07/2023 at 1037. Patient Condition at Discharge: Stable Plan - Discharge Summary New Discharge Prescriptions: New Propafenone [Rythmol] 150 mg PO TID #90 tab Continue metHOTREXate sodium 25 mg PO Q7D lisinopriL [Zestril] 5 mg PO DAILY Folic Acid 1 mg PO DAILY Discharge Medication List Folic Acid 1 mg PO DAILY 04/06/23 [History] lisinopriL [Zestril] 5 mg PO DAILY 04/06/23 [History] metHOTREXate sodium 25 mg PO Q7D 04/06/23 [History] Propafenone [Rythmol] 150 mg PO TID #90 tab 04/07/23 [Rx] Follow up Appointment(s)/Referral(s): [facility] [Provider Group] - 1 Week (wants to make appt his self) Calixto Wilson MD [Primary Care Provider] - 1-2 days Patient Instructions/Handouts: A-fib (Atrial Fibrillation) (DC) Activity/Diet/Wound Care/Special Instructions: Please see your PCP and striper spray gun. Discharge Disposition: HOME SELF-CARE
--- NOTE | 2023-04-10 07:52 | PN ---
PROGRESS NOTE SUBJECTIVE: This is a 62-year-old gentleman who presented to hospital with atrial fibrillation with rapid ventricular rate and converted back to sinus rhythm. His echocardiogram showed normal LV systolic function. I advised him to start Rythmol for rhythm suppression. Understanding risks and benefits, he does not wish to start any new medications at this time. He is going to be on aspirin for anticoagulant. His CHADS-VASc score is 0. This morning, he is in sinus rhythm and is free of symptoms. PHYSICAL EXAMINATION: VITAL SIGNS: Stable. There is no jugular venous distention. CHEST: Reveals good air entry bilaterally. HEART: Reveals first and second heart sounds. No gallop, no murmur. EXTREMITIES: Did not reveal any edema. Peripheral pulses are felt. ASSESSMENT AND PLAN: Paroxysmal atrial fibrillation. PLAN: Patient is in sinus rhythm, stable for discharge. Followup with primary care physician. He is going to call and make an appointment with a gyro mechanic. KAMILA / LUPILLON: [phone] /
== END 2023-04-07 11:02 | disposition home or self-care (01) ==
LOC: EC 01:08 → 3SCARD 04:39
PROVIDERS: ADMIT Internal Medicine; ATTEND Internal Medicine
DX: I48.0 Paroxysmal atrial fibrillation (principal); I10 Essential (primary) hypertension; M06.9 Rheumatoid arthritis, unspecified; I77.810 Thoracic aortic ectasia; M19.90 Unspecified osteoarthritis, unspecified site; Z85.828 Personal history of other malignant neoplasm of skin; Z79.899 Other long term (current) drug therapy; Z80.9 Family history of malignant neoplasm, unspecified
CPT/HCPCS: 96376; 96365; 99291; 36415; 93005; 93306; 85379; 83880; 80053; 80048; 84443 ×2; 83735; 84484; 85025 ×2; 85610; 85730; 81003; 80306; 71046; 71275; G0378 ×2; Q9967

== ENCOUNTER 2023-12-19 16:49 | Emergency (ER) | payer BC ==
[2023-12-19 16:56] VITALS: RESP 18
[2023-12-19 18:04] LABS: Basophils % (A) 0 %; Eosinophils # (A) 0.1 k/uL (0-0.7); Eosinophils % (A) 1 %; HCT 48.2 % (39.0-53.0); HGB 15.5 gm/dL (13.0-17.5); Lymphocytes # (A) 0.9 k/uL (1.0-4.8); Lymphocytes % (A) 12 %; MCH 31.5 pg (25.0-35.0); MCHC 32.2 g/dL (31.0-37.0); MCV 97.9 fL (80.0-100.0); Mean Platelet Volume 7.4; Monocytes # (A) 0.4 k/uL (0-1.0); Monocytes % (A) 6 %; Neutrophils % (A) 81 %; Platelet Count 203 k/uL (150-450); RBC 4.93 m/uL (4.30-5.90); RDW 14.1 % (11.5-15.5); WBC 7.4 k/uL (3.8-10.6)
[2023-12-19 18:19] LABS: ALT 35 U/L (4-49); AST 38 U/L (17-59); African American GFR (CKD) >90 (>60 ml/min/1.73 sqM); Albumin 4.1 g/dL (3.5-5.0); Alkaline Phosphatase 78 U/L (38-126); Anion Gap 5 mmol/L; Blood Urea Nitrogen 18 mg/dL (9-20); Calcium 9.1 mg/dL (8.4-10.2); Carbon Dioxide 25 mmol/L (22-30); Chloride 108 mmol/L (98-107); Glucose 150 mg/dL (74-99); Non-African American GFR(CKD) 87 (>60 ml/min/1.73 sqM); Prothrombin Time 11.2 sec (10.0-12.5); Sodium 138 mmol/L (137-145); Total Protein 6.5 g/dL (6.3-8.2)
--- NOTE | 2023-12-19 19:04 | CT ---
EXAMINATION TYPE: CT brain maryanne wo con DATE OF EXAM: 12/19/2023 COMPARISON: None HISTORY: Fall on thinners CT DLP: 1454.8 mGycm, Automated exposure control for dose reduction was used. CONTRAST: Patient injected with 0 mL of Isovue 300. CT of the brain is performed utilizing 3 mm thick sections through the posterior fossa and 3 mm thick sections through the remaining calvarium. Study is performed within 24 hours of arrival to the hospital. No abnormal hyperdensity is present to suggest an acute intracranial hemorrhage. No mass lesion is evident. No acute infarcts are evident. Ventricles and sulci are appropriate for the patient age. Paranasal sinuses and mastoid air cells within the [id number] are clear. IMPRESSIONS: 1. No acute intracranial process. Follow-up MRI can be performed as clinically indicated. CT cervical spine. COMPARISON: None CT of the cervical spine is performed in the axial plane at 2 mm thick sections. Reconstructed image s in the coronal, and sagittal plane are reviewed on the computer. No acute fractures are evident. There is a mild kyphosis centered at C5-6 There is narrowing of disc height at C5-C6 and milder disc space narrowing C6-7 and C7-T1. Small post erior endplate spurs are present at C6-7. Longitudinal ligament calcification may be present posterio r to C5-6. Vertebral body heights are preserved. No spinal canal stenosis is evident. Mild foraminal narrowing is present at C6-7 IMPRESSION: 1. Mild kyphosis C5-6. 2. Degenerative disc changes C5-6 C6-7. 3. Mild foraminal narrowing C6-7 4. No acute osseous abnormality [facility], Workstation: [facility], 12/19/2023 7:01 PM
--- NOTE | 2023-12-19 19:06 | CT ---
EXAMINATION TYPE: CT lumbar spine wo con DATE OF EXAM: 12/19/2023 COMPARISON: None HISTORY: Fall off ladder, lower back pain CT DLP: 1214.6 mGycm CONTRAST: None TECHNIQUE: CT of the lumbar spine is performed on a spiral scan at 3 mm thick sections. Reconstructed images are performed in the coronal and sagittal planes. FINDINGS: T12-L1: No focal disc herniation or significant disc bulge is evident. No spinal canal stenosis or neural foraminal stenosis is present. L1-L2: No focal disc herniation or significant disc bulge is evident. No spinal canal stenosis or n eural foraminal stenosis is present L2-L3: No focal disc herniation or significant disc bulge is evident. No spinal canal stenosis or n eural foraminal stenosis is present L3-L4: Mild disc bulges anterior thecal sac flattening. No AP spinal canal stenosis is present. Neura l foramen are patent. L4-L5: Mild disc bulges anterior thecal sac flattening. Facet hypertrophy and ligamentum flavum laxit y of posterior lateral thecal sac compression. Some spinal canal narrowing is present at this level. Moderate bilateral foraminal narrowing is present. L5-S1: No focal disc herniation or significant disc bulge is evident. There is narrowing of disc hei ght posterior L5-S1. No spinal canal stenosis or neural foraminal stenosis is present Vertebral alignment appears normal. Vertebral body heights are preserved. IMPRESSION: 1. Disc bulge and facet hypertrophy L4-5 contributing to foraminal stenosis. 2. Mild disc bulge at L3-4 with sac flattening. No spinal canal stenosis. [facility], Workstation: [facility], 12/19/2023 7:04 PM
--- NOTE | 2023-12-19 19:30 | ED ---
General Adult HPI - General Chief complaint: Fall Stated complaint: fall Time Seen by Provider: 12/19/23 17:35 Source: patient, RN notes reviewed, old records reviewed Mode of arrival: ambulatory Limitations: no limitations - History of Present Illness Initial comments: Is a 63-year-old male with past medical history remarkable for prior A-fib but no current A-fib. Hypertension, rheumatoid arthritis. Is not on blood thinners. Presents after a fall at home. Patient is currently moving when he fell off the back of a trailer which is approximately 18 inches off the ground. Landed on his lumbar spine and then hit his head on gravel. Unknown LOC but was mildly confused afterwards per patient's . Patient has no other acute complaints at this time. Currently is ANO x 4. Is complaining of lower back pain. Denies any saddle paresthesias. Denies lower extremity weakness or numbness. Denies bowel or bladder incontinence or retention. Presents for further evaluation at this time. - Related Data Home Medications Medication Instructions Recorded Confirmed Folic Acid 1 mg PO DAILY 04/06/23 04/06/23 lisinopriL [Zestril] 5 mg PO DAILY 04/06/23 04/06/23 metHOTREXate sodium [Methotrexate] 25 mg PO Q7D 04/06/23 04/06/23 Previous Rx's Medication Instructions Recorded Propafenone [Rythmol] 150 mg PO TID #90 tab 04/07/23 Allergies Allergy/AdvReac Type Severity Reaction Status Date / Time No Known Allergies Allergy Verified 12/19/23 16:56 Review of Systems ROS Statement: Those systems with pertinent positive or pertinent negative responses have been documented in the HPI. Review of Systems: CONST: Denies fever EYES: Denies blurry vision ENT: Denies nasal congestion C/V: Denies Chest pain RESP: Denies shortness of breath GI: Denies abdominal pain : Denies dysuria SKIN: Denies rash. MSK: Endorses back pain NEURO: Denies headache ROS Other: All systems not noted in ROS Statement are negative. Past Medical History Past Medical History: Atrial Fibrillation, Cancer, Hypertension, Osteoarthritis (OA), Rheumatoid Arthritis (RA) Additional Past Medical History / Comment(s): occ high bp-no rx, hx skin cancer History of Any Multi-Drug Resistant Organisms: None Reported Past Surgical History: Hernia Repair Additional Past Surgical History / Comment(s): skin cancer removed from face Past Anesthesia/Blood Transfusion Reactions: No Reported Reaction Past Psychological History: No Psychological Hx Reported Smoking Status: Never smoker Past Alcohol Use History: Occasional Past Drug Use History: None Reported - Past Family History Father Family Medical History: Cancer General Exam - General Exam Comments Initial Comments: General: Appears in no acute distress. HEAD: Normal with no signs of head trauma. Negative Johnson sign. Negative raccoon eyes. EYES: PERRLA, EOMI, conjunctiva normal, no discharge. Pupils are 3 mm and equal bilaterally. ENT: Hearing grossly intact, normal oropharynx. RESPIRATORY: Clear breath sounds bilaterally. No wheezes, rales, or rhonchi. C/V: Regular rate and rhythm. S1 and S2 auscultated, no edema, peripheral pulses 2+ and intact throughout ABD: Abd is soft, nontender, nondistended EXT: Normal range of motion, no obvious deformity. No obvious step-offs or deformities of the spine. Mild paraspinal muscle tenderness to palpation of the lower lumbar spine primarily on the right. Mild midline lumbar spine tenderness to palpation. SKIN: No rashes or lesions observed on exposed skin. NEURO: Alert and oriented x 4. Cranial nerves II-XII intact. No focal sensory or strength deficits. GCS of 15. Limitations: no limitations Course Vital Signs 12/19/23 16:49 Temperature 98.3 F Pulse Rate 67 Respiratory 18 Rate Blood Pressure 148/86 O2 Sat by Pulse 98 Oximetry Medical Decision Making - Medical Decision Making Was pt. sent in by a medical professional or institution (, PA, FITTER MECHANIC, urgent care, hospital, or long term...) When possible be specific @ -No Did you speak to anyone other than the patient for history (EMS, parent, family, police, friend...)? What history was obtained from this source @ -Patient's assist with patient's recent HPI and how she found the patient confused at the scene. This is since resolved. Did you review nursing and triage notes (agree or disagree)? Why? @ -I reviewed and agree with nursing and triage notes Were old charts reviewed (outside hosp., previous admission, EMS record, old EKG, old radiological studies, urgent care reports/EKG's, long term records)? Report findings @ -No old charts were reviewed Differential Diagnosis (chest pain, altered mental status, abdominal pain women, abdominal pain men, vaginal bleeding, weakness, fever, dyspnea, syncope, headache, dizziness, GI bleed, back pain, seizure, CVA, palpatations, mental he alth, musculoskeletal)? @ -Differential Musculoskeletal Muscular strain, contusion, ligament sprain, fracture, arthritis, septic arthritis, bursitis, cellulitis, muscle spasm, nerve compression, DVT, arterial occlusion, herpes zoster, electrolyte abnormality, tumor.... This is not meant to be in all inclusive list EKG interpreted by me (3pts min.). @ -As above X-rays interpreted by me (1pt min.). @ -None done CT interpreted by me (1pt min.). @ -Brain, C-spine, lumbar spine negative for any obvious acute bony traumatic injury. Patient does have a disc bulge at L4-L5 as well as chronic deg eneration. U/S interpreted by me (1pt. min.). @ -None done What testing was considered but not performed or refused? (CT, X-rays, U/S, labs)? Why? @ -I offered chest and pelvis x-rays which were declined by the patient. What meds were considered but not given or refused? Why? @ -I offered analgesia medications which were declined by the patient. Did you discuss the management of the patient with other professionals (professionals i.e. , PA, FITTER MECHANIC, lab, RT, psych nurse, nursing home social worker, sales training representative, teacher, audit officer, wrapper caser)? Give summary @ -No Was smoking cessation discussed for >3mins.? @ -No Was critical care preformed (if so, how long)? @ -No Were there social determinants of health that impacted care today? How? (Homelessness, low income, unemployed, alcoholism, drug addiction, transportation, low edu. Level, literacy, decrease access to med. care, [facility], rehab)? @ -No Was there de-escalation of care discussed even if they declined (Discuss DNR or withdrawal of care, Hospice)? DNR status @ -No What co-morbidities impacted this encounter? (DM, HTN, Smoking, COPD, CAD, Cancer, CVA, ARF, Chemo, Hep., AIDS, mental health diagnosis, sleep apnea, morbid obesity)? @ -None Was patient admitted / discharged? Hospital course, mention meds given and route, prescriptions, significant lab abnormalities, going to OR and other pertinent info. @ -Based on the patient's presentation and physical exam, patient presents emergency department for fall with low back pain as well as brief altered mental status following the incident. Likely concussion but we will obtain CT brain and C-spine as well as CT lumbar spine. Patient is not on any blood thinners. We will obtain basic labs as well as EKG. I did recommend chest and pelvis x- ray which she declines. Also declines analgesia medications. He was otherwise in agreement this plan. EKG showed no signs of acute ischemia. Imaging unremarkable for acute injury. Labs are within acceptable limits. On reevaluation, patient is feeling improved. Remains alert and oriented x 4 with no confusion. He will be discharged home at this time. Patient was in agreement this plan. I instructed the patient to follow up with their PCP in the next 1-3 days. I explained that the patient should return to the emergency department if they experience any worsening symptoms. Strict return precautions were discussed with the patient. The patient expressed understanding of these instructions. I answered all questions that the patient had. The patient was discharged home in good condition with their prescriptions and follow up information. Undiagnosed new problem with uncertain prognosis? @ -No Drug Therapy requiring intensive monitoring for toxicity (Heparin, Nitro, Insulin, Cardizem)? @ -No Were any procedures done? @ -No Diagnosis/symptom? @ -Fall, back pain, concussion Acute, or Chronic, or Acute on Chronic? @ -Acute Uncomplicated (without systemic symptoms) or Complicated (systemic symptoms)? @ -Complicated Side effects of treatment? @ -No Exacerbation, Progression, or Severe Exacerbation? @ -No Poses a threat to life or bodily function? How? (Chest pain, USA, MA, pneumonia, PE, COPD, DKA, ARF, appy, cholecystitis, CVA, Diverticulitis, Homicidal, Suicidal, threat to staff... and all critical care pts) @ -Unlikely at this time - Lab Data Result diagrams: 12/19/23 17:51 12/19/23 17:51 Lab Results 12/19/23 12/19/23 12/19/23 Range/Units 17:51 17:51 17:51 WBC 7.4 (3.8-10.6) k/uL RBC 4.93 (4.30-5.90) m/uL Hgb 15.5 (13.0-17.5) gm/dL Hct 48.2 (39.0-53.0) % MCV 97.9 (80.0-100.0) fL MCH 31.5 (25.0-35.0) pg MCHC 32.2 (31.0-37.0) g/dL RDW 14.1 (11.5-15.5) % Plt Count 203 (150-450) k/uL MPV 7.4 Neutrophils % 81 % Lymphocytes % 12 % Monocytes % 6 % Eosinophils % 1 % Basophils % 0 % Neutrophils # 6.0 (1.3-7.7) k/uL Lymphocytes # 0.9 L (1.0-4.8) k/uL Monocytes # 0.4 (0-1.0) k/uL Eosinophils # 0.1 (0-0.7) k/uL Basophils # 0.0 (0-0.2) k/uL PT 11.2 (10.0-12.5) sec INR 1.0 (<1.2) APTT 26.0 (22.0-30.0) sec Sodium 138 (137-145) mmol/L Potassium 4.0 (3.5-5.1) mmol/L Chloride 108 H (98-107) mmol/L Carbon Dioxide 25 (22-30) mmol/L Anion Gap 5 mmol/L BUN 18 (9-20) mg/dL Creatinine 0.93 (0.66-1.25) mg/dL Est GFR (CKD-EPI)AfAm >90 (>60 ml/min/1.73 sqM) Est GFR (CKD-EPI)NonAf 87 (>60 ml/min/1.73 sqM) Glucose 150 H (74-99) mg/dL Calcium 9.1 (8.4-10.2) mg/dL Total Bilirubin 1.0 (0.2-1.3) mg/dL AST 38 (17-59) U/L ALT 35 (4-49) U/L Alkaline Phosphatase 78 (38-126) U/L Total Protein 6.5 (6.3-8.2) g/dL Albumin 4.1 (3.5-5.0) g/dL Disposition Clinical Impression: Fall, Back pain, Concussion Disposition: HOME SELF-CARE Condition: Good Instructions (If sedation given, give patient instructions): Concussion (ED), Fall Prevention (ED) Is patient prescribed a controlled substance at d/c from ED?: No Referrals: Calixto Wilson MD [Primary Care Provider] - 1-2 days Time of Disposition: 19:30
[2023-12-19 19:47] VITALS: BP 143/79; PULSE 62; TEMP 97.8
== END 2023-12-19 20:35 | disposition home or self-care (01) ==
LOC: EC 16:49
CPT/HCPCS: 36415; 70450; 72125; 72131; 80053; 85025; 85610; 85730; 93005; 99284